=== PATIENT | male | born 1960 | race Caucasian/White ===

== ENCOUNTER 2016-11-19 19:54 | Emergency (ER) | payer BC, OTHER ==
[~2016-11-19] VITALS: Ht 177.8 cm; Wt 83.6 kg
[2016-11-19 19:56] VITALS: PULSE 82; TEMP 36.6; O2SAT 96; Ht 177.8 cm; Wt 83.6 kg
[2016-11-19] MEDS ORDERED: OXYMETAZOLINE HCL 0.05% NA SPR 15 ML BTL ONE (20:14)
[2016-11-19] MEDS ORDERED: LIDOCAINE 4% W/AFRIN NASAL SOLN 4ML ONE (20:23)
--- NOTE | 2016-11-19 20:26 | EMERGENCY ROOM VISIT NOTE ---
History Report prepared by Mary: Emilia Myers Under the Supervision of: Dr. Yogi Moss M.D. First contact with patient: 20:13 Chief Complaint: NOSE BLEED (MINOR) Stated Complaint: NOSE BLEED History of Present Illness The patient is a 56 year old male who presents to the Emergency Room with complaints of a persistent epistaxis to the right naris that began around 1800 today. The patient states that he previously had nose bleeds in 2003. He states that today he had just gone to lie down in bed when his nose started to bleed out of the right naris. The patient denies any trauma. He denies blowing his nose to start the bleeding. The patient denies any recent cough, cold or congestion. He denies being on any blood thinners. The patient denies any history of hypertension. The patient states that in 2003 he had his nose cauterized to stop the bleeding. He states that today he applied pressure to his right naris that initially stopped the bleeding, but states that it started back up quickly. Source of History: patient Onset: 1800 today Position: nose Quality: other (epistaxis) Timing: other (persistent) Associated Symptoms: No cough Review of Systems See HPI for pertinent positives & negatives. A total of 10 systems reviewed and were otherwise negative. Past Medical & Surgical Surgical Problems: (1) Hx of appendectomy Family History Cancer Diabetes mellitus Hypertension Kidney disease Kidney stones Social History Smoking Status: Never Smoker Alcohol Use: occasionally Marital Status: single Occupation Status: employed Current/Historical Medications No Active Prescriptions or Reported Meds Allergies Coded Allergies: No Known Allergies (Unverified , 11/19/16) Physical Exam Vital Signs Date Time Temp Pulse Resp B/P Pulse Ox O2 Delivery O2 Flow Rate FiO2 11/19/16 19:56 36.6 82 16 182/100 96 Room Air Physical Exam GENERAL: Patient is in no acute distress. HEENT: No acute trauma, normocephalic atraumatic, mucous membranes moist, no nasal congestion, Cotton ball in place in the right naris, blood noted down back of throat, when cotton ball is removed there is bleeding from the right naris, no scleral icterus. NECK: No stridor, no adenopathy, no meningismus, trachea is midline. LUNGS: Clear to auscultation bilaterally, no wheeze, no rhonchi, breath sounds equal. HEART: Without murmurs gallops or rubs, regular rate and rhythm. ABDOMEN: Soft, nontender, bowel sounds positive, no hernias, no peritonitis. EXTREMITIES: No cyanosis or edema, full range of motion of all the joints without pain or difficulty, no signs for acute trauma. NEUROLOGIC: Oriented x 3, no acute motor or sensory deficits, no focal weakness. SKIN: No rash, no jaundice, no diaphoresis. Medical Decision & Procedures Medications Administered Medications (Trade) Dose Ordered Sig/Parveen Route Start Time Stop Time Status Last Admin Dose Admin Oxymetazoline HCl (Afrin 0.05% Nasal [place]) 75 sprays STK-MED ONCE .ROUTE 11/19/16 20:14 11/19/16 20:17 DC 11/19/16 20:14 75 SPRAYS Lidocaine HCl (Afrin W/ Lidocaine 4%) 4 ml STK-MED ONCE .ROUTE 11/19/16 20:23 11/19/16 20:26 DC 11/19/16 20:23 4 ML Sodium Chloride ([place] Nasal [place]) 1 sprays NOW ONCE NA 11/19/16 21:45 11/19/16 21:46 DC 11/19/16 21:46 1 SPRAYS Procedure Nasal cautery: Using Afrin and lidocaine spray, the nose was anesthetized. Using a silver nitrate stick, right sided anterior septal nasal cautery was performed, there were no complications. The nasal clip was reapplied after cautery for 15 minutes, no further bleeding. ED Course 2012: The patient was evaluated in room B12B. A complete history and physical exam was performed. 2013: Ordered Oxymetazoline HCl 75 sprays .route. 2022: Ordered Lidocaine HCl 5 ml .route. 2055: Ordered Silver Nitrate/Potassium Nitrate 1 pkt .route. 2099: I cauterized the nose at the time with Silver nitrate and Afrin. 2127: I reevaluated the patient and his nose is cauterized and stopped bleeding. I discussed all the exam findings with him and I discussed the treatment plan. He verbalized complete understanding and agreement. He is ready to go home. 2144: Ordered Sodium Chloride 1 sprays NA Medical Decision The patient is a 56 year old male who presents to the ED with complaints of nose bleed. Differential diagnoses considered include coagulopathy, anterior or posterior epistaxis, nasal trauma, uncontrolled hypertension. The patient presents with right-sided epistaxis. There was a spot that was obviously the source for bleeding noted on exam. The patient had Afrin and lidocaine spray applied, a nasal clip was applied. He then had Silver nitrate nasal cautery performed. There were no complications. No further bleeding afterwards, no blood down the back of the throat. The patient is somewhat hypertensive, he does not have a history of hypertension. He may just be anxious and worked up about his visit, I have advised him to see a family doctor and have his blood pressure rechecked when feeling better. He was told that high blood pressure over prolonged times can lead to heart disease and stroke. The patient was encouraged to return to this ER for bleeding that could not be controlled at home. [place], a humidifier , avoidance of straining stooping was encouraged. Impression Primary Impression: Right-sided epistaxis Scribe Attestation The scribe's documentation has been prepared under my direction and personally reviewed by me in its entirety. I confirm that the note above accurately reflects all work, treatment, procedures, and medical decision making performed by me. Departure Information Dispostion Home / Self-Care Prescriptions No Active Prescriptions or Reported Meds Referrals Terry Rm M.D. (PCP) Forms HOME CARE DOCUMENTATION FORM, IMPORTANT VISIT INFORMATION, WORK / SCHOOL INSTRUCTIONS Patient Instructions My [facility] Additional Instructions ocean spray to keep nose moist no stooping, straining, heavy lifting or hot showers humidifier to the bedroom at night if nose rebleeds, appy clip for 30 minutes--if it will not stop, report to the ED see norma davis to have blood pressure checked as we discussed--it was elevated here haim
[2016-11-19] MEDS ORDERED: SILVER NITR/POTASSIUM NITRATE 10 APPLICATOR PACK ONE ×2 (20:56)
[2016-11-19] MEDS ORDERED: SODIUM CHLORIDE 0.65% NA SOLN 45 ML (OCEAN) ONE (21:45)
[2016-11-19 21:50] VITALS: BP 154/87
== END 2016-11-19 21:52 | disposition home or self-care (01) ==
LOC: C.EDB 19:56
DX: R04.0 Epistaxis (principal); Z90.89 Acquired absence of other organs; Z98.890 Other specified postprocedural states; Z83.3 Family history of diabetes mellitus; Z82.49 Family history of ischemic heart disease and other diseases of the circulatory system; Z84.1 Family history of disorders of kidney and ureter